=== PATIENT | female | born 1970 | race Caucasian/White ===

== ENCOUNTER 2024-11-03 09:01 | Emergency (ER) | payer OTHER ==
[~2024-11-03] VITALS: Ht 167.6 cm; Wt 79.4 kg
--- NOTE | 2024-11-03 09:30 | ERN ---
General Chief Complaint: Dizzy/Light Headed Stated Complaint: DIZZINESS X 3 DAYS Time Seen by MD: 09:03 History of Present Illness Initial Comments 54-year-old female, history of hypertension, presents for hypertension, dizziness, shoulder discomfort that has some sinus pressure. Patient reports that about a week ago she noticed some pressure on the left side of her shoulder. No chest pain. It was unprovoked, atraumatic. It resolved. Over this past weekend she noticed episodes of dizziness/lightheadedness. She went to [facility] and was told she had hypertension. Her vital signs were stable, but she continues with symptoms now. The [facility] recommended she comes here for further treatment and evaluation. She does report some sinus pressure, no fred headache. No vision changes or focal neurologic deficits. No dyspnea or swelling. She does report some pulling from her left chest into her left shoulder and some tingling. She was taking losartan for years now. She reports that her last nuclear stress test was about five years ago and it was unremarkable. On arrival here her blood pressure is 211 systolic. Allergies: Uncoded Allergies: ANASTHESIA MEDS (Allergy, Severe, UNKNOWN, 11/03/24) Home Meds Active Scripts Clonidine HCl (Clonidine HCl) 0.1 Mg Tablet, 1 TAB PO QID for blood pressure > 140/90 for 10 Days, #30 TAB 0 Refills Prov:SUSU SIMENTAL DO 11/03/24 Losartan Potassium (Losartan Potassium) 100 Mg Tablet, 1 TAB PO DAILY for 30 Days, #30 TAB 0 Refills Prov:SUSU SIMENTAL DO 11/03/24 Past Medical History Past Medical History: Depression, Fibromyalgia, Hypertension Medical History Other: BACK STENOSIS Past Surgical History: Hysterectomy ROS Dictation CONSTITUTIONAL: No chills, no fever, no weakness, no diaphoresis, no malaise. HEAD/FACE: No signs of trauma. EENT: No eye pain, no blurred vision, no tearing, no double vision, no ear pain, no ear discharge, no nose pain, no nasal congestion, no throat pain, no throat swelling, no mouth pain. RESPIRATORY: No cough, no orthopnea, no SOB, no stridor, no wheezing. CARDIOVASCULAR: Left shoulder/chest pain GASTROINTESTINAL/ABDOMINAL: No abdominal pain, no constipation, no diarrhea, no nausea, no vomiting. GENITOURINARY: No abnormal discharge, no dysuria, no frequent urination, no h ematuria. No complaints of pain in the genitals. MUSCULOSKELETAL: No back pain, no gout, no joint pain, no joint swelling, no muscle pain, no muscle stiffness, no neck pain. INTEGUMENTARY: No change in color, no change in hair/nails, no dryness, no les ion, no lumps, no rash. NEUROLOGICAL/PSYCH: Headache HEMATOLOGIC/LYMPHATIC: Not anemic, no history of blood clots, no apparent bleeding, no bruising, glands not swollen. All Systems Negative, Except as Noted. Physical Exam Physical Exam Dictation VITAL SIGNS: Reviewed. GENERAL APPEARANCE: Alert, oriented x3, no acute distress. HEAD AND FACE: Non-traumatic. EYES: PERRL, pink conjunctivas, eyelid no trauma, anterior chamber clear. EARS: Pinnas intact and no signs of trauma or erythema. Ear canals clear and no discharge. TMs no erythema. NOSE: No discharge, no bleeding. OROPHARYNX: Mouth normal, teeth no caries, tongue pink. Pharynx clear, no erythema. Tonsils no exudates, no abscesses noted. Mucous membrane moist. NECK: Supple, non-tender, no thyromegaly, no masses, no JVD, no bruits. BREAST: Deferred. CHEST: No tenderness, no crepitus, no paradoxical movement, no retractions. LUNGS: Clear, well-ventilated, symmetric, no rales, no wheezing, no rhonchi, no stridor, good breath sounds bilaterally. HEART: Regular rate, regular rhythm, no murmur, no gallops. VASCULAR: No peripheral edema. ABDOMEN: Soft, positive bowel sounds, nondistended, no guarding, nontender, no rebound, no masses no hepatomegaly, no splenomegaly, no Jimenez's sign, no hernias. RECTAL: Deferred. GENITAL: Deferred. NEUROLOGICAL: Normal speech, gross motor function intact, gross sensory function intact. MUSCULOSKELETAL: Neck nontender, full range of motion, back nontender, full range of motion. EXTREMITIES: Nontender, full range of motion. SKIN: Color pink, dry, no turgor, no rash, no lacerations, no abrasions, no contusions. LYMPHATICS: Deferred. Results Laboratory and Microbiology Lab and Micro Result Laboratory Tests Test 11/03/24 09:25 11/03/24 10:16 11/03/24 10:47 White Blood Count 4.9 K/uL (4.8-10.8) Red Blood Count 4.80 MIL/uL (4.00-5.50) Hemoglobin 15.3 g/dL (12.0-16.0) Hematocrit 43.3 % (36-48) Mean Corpuscular Volume 90.2 fL (79-99) Mean Corpuscular Hemoglobin 31.9 pg (27.0-33.0) Mean Corpuscular Hemoglobin Concent 35.3 g/dL (32.0-36.0) Red Cell Distribution Width 11.0 % (11.0-15.5) Platelet Count 196 K/uL (130-400) Mean Platelet Volume 10.5 fL (7.5-10.5) Immature Granulocyte % (Auto) 0.6 % (0-1) Neutrophils (%) (Auto) 56.2 % (40.0-77.0) Lymphocytes (%) (Auto) 31.7 % (21.0-51.0) Monocytes (%) (Auto) 8.0 % (3.0-13.0) Eosinophils (%) (Auto) 2.9 % (0.0-8.0) Basophils (%) (Auto) 0.6 % (0.0-5.0) Neutrophils # (Auto) 2.8 K/uL (1.8-7.7) Lymphocytes # (Auto) 1.6 K/uL (1.0-4.8) Monocytes # (Auto) 0.4 K/uL (0.1-1.0) Eosinophils # (Auto) 0.14 K/uL (0.00-0.70) Basophils # (Auto) 0.03 K/uL (0.00-0.20) Absolute Immature Granulocyte (auto 0.03 K/uL (0-1) Nucleated Red Blood Cells 0.0 % (0.0-0.19) Prothrombin Time 10.4 SEC (9.6-11.6) Prothromb Time International Ratio 0.98 (0.85-1.15) Sodium Level 140 mmol/L (136-145) Potassium Level 4.0 mmol/L (3.5-5.1) Chloride Level 103 mmol/L (101-111) Carbon Dioxide Level 29 mmol/L (21-32) Blood Urea Nitrogen 15 mg/dL (7-18) Creatinine 0.8 mg/dL (0.5-1.0) Glomerular Filtration Rate Calc 87 mL/min (>90) Random Glucose 175 mg/dL (70-105) H Total Calcium 9.2 mg/dL (8.5-10.1) Troponin I High Sensitivity < 4 ng/L (4-50) L < 4 ng/L (4-50) L B-Type Natriuretic Peptide 9 pg/mL (0-100) Urine Color LIGHT-YELLOW (YELLOW) Urine Appearance CLEAR (CLEAR) Urine pH 6.5 (5.0-8.0) Urine Specific [place] 1.005 (1.001-1.031) Urine Protein NEGATIVE mg/dL (NEGATIVE) Urine Glucose (UA) NEGATIVE mg/dL (NEGATIVE) Urine Ketones NEGATIVE mg/dL (NEGATIVE) Urine Occult Blood NEGATIVE (NEGATIVE) Urine Nitrate NEGATIVE (NEGATIVE) Urine Bilirubin NEGATIVE mg/dL (NEGATIVE) Urine Urobilinogen 0.2 mg/dL (0.2-1.0) Urine Leukocyte Esterase NEGATIVE B[place]/uL MDM CC: Hypertension, dizziness, left shoulder pain on and off for a week Historian: Patient Comorbidities: Hypertension, depression, fibromyalgia, hysterectomy Limitations by social determinants of health: None Differential diagnosis: ACS, stroke, hypertensive emergency, hypertensive urgency, dehydration, vertigo, electrolyte abnormality, other Initial vital signs: Hypertensive to 216/114 otherwise stable. EKG (independently interpreted by me ): Sinus rhythm, rate of 76, normal axis, good R-wave progression, intervals are stable no STEMI. Clinical exam is unremarkable. NIHSS of 0. No signs of stroke. Cardiac exam is unremarkable. No extra heart tones, pulmonary edema, or pedal edema. Labs (independently ordered and interpreted by me): CBC is normal. Coags normal. Electrolytes normal. Troponin x2 normal. BNP normal. Urinalysis normal. CT head without contrast ( independently interpreted by me): No acute bleeding or abnormalities. CXR ( independently interpreted by me ): No cardiomegaly pleural effusions or focal infiltrates. Based on the clinical presentation patient may be having hypertensive urgency. There was no signs of end-organ damage. No signs of stroke. No signs of ACS w ith a normal troponin x2 EKG. Renal function appears intact. Patient received hydralazine in improved. She was asymptomatic. Treatment in ED: Hydralazine 20 mg IV Repeat vital signs: 136/88, otherwise stable Re-evaluation: Patient asymptomatic. No dizziness or vertigo. No chest pain. Plan: Offered the patient admission for an ACS/cardiac workup. You can also manage her blood pressure since it appears that this may be causing the symptoms. Patient reports that she prefers not to stay in the hospital this time. [facility] I will recommend that she increases her losartan dose and gave her a prescription for clonidine to use as needed. Patient agrees with this plan. She will return to the emergency department if she was any concerning symptoms. ED Course Orders Procedure Category Date Status Time Cbc With Differential LAB 11/03/24 Complete 09:11 Prothrombin Time With LAB 11/03/24 Complete INR 09:11 B-Type Natriuretic LAB 11/03/24 Complete Peptide 09:11 Chest 1vw RAD 11/03/24 Resulted 09:11 12 Lead Ekg Tracing- EKG 11/03/24 Resulted Technical 09:11 Troponin I High LAB 11/03/24 Complete Sensitivity 09:11 Basic Metabolic Panel LAB 11/03/24 Complete 09:11 Ct Head/Brain W/O CT 11/03/24 Resulted Contrast 09:11 Hydralazine 20mg Inj PHA 11/03/24 Complete (Apresoline 20mg In 09:30 Urinalysis Profile LAB 11/03/24 Complete 10:18 Troponin I High LAB 11/03/24 Complete Sensitivity 10:24 Current Medications Medications (Trade) Dose Ordered Sig/Denisha Route PRN Reason Start Time Stop Time Status Last Admin Dose Admin Hydralazine HCl (APRESOLine 20MG INJ) 20 mg ONCE ONCE IV 11/03/24 09:30 11/03/24 09:31 DC 11/03/24 09:50 Vital Signs Date Time Temp Pulse Resp B/P (MAP) Pulse Ox O2 Delivery O2 Flow Rate FiO2 11/03/24 12:24 98.2 80 12 136/88 100 Room Air* 0 11/03/24 11:32 98.2 80 11 131/80 100 Room Air* 0 11/03/24 10:15 97.2 86 16 133/84 100 Room Air* 0 21 11/03/24 09:10 97.2 92 16 206/114 100 Room Air* 0 21 11/03/24 09:03 97.9 79 16 206/114 100 Room Air 0 DX & DISP Disposition: Discharge Departure Impression: Primary Impression: Hypertensive urgency Condition: Stable Scripts Clonidine HCl (Clonidine HCl) 0.1 Mg Tablet 1 TAB PO QID for blood pressure > 140/90 for 10 Days, #30 TAB 0 Refills Prov: SUSU SIMENTAL DO 11/03/24 Losartan Potassium (Losartan Potassium) 100 Mg Tablet 1 TAB PO DAILY for 30 Days, #30 TAB 0 Refills Prov: SUSU SIMENTAL DO 11/03/24 Additional Instructions: Your symptoms are consistent with hypertensive urgency, or an acute elevation of your blood pressure. On arrival to the emergency department, your blood pressure was 206/114. It improved to 131/80 with treatment. Your other vital signs has been stable. Your EKG is normal. Your chest x-ray is normal. The CT scan of your brain without contrast is normal. Your lab work ( CBC, BMP, PT /INR, BNP, troponin x2, urinalysis ) is normal. You received IV hydralazine here in the ER. As we discussed, I recommend that you increase your dose of losartan from 50 mg daily to 100 mg daily. I have prescribed clonidine. This can be used as needed for elevated blood pressure. If you are symptomatic with a blood pressure over 160/90, take a clonidine tab to ensure that your blood pressure improves.Only use this medication as needed. As we discussed, likely need further studies regarding your heart and you need further monitoring of your blood pressure. Please return to the [facility] for further treatment and evaluation. Return to the emergency department if you have any concerning symptoms. SUSU SIMENTAL DO November 03, 2024 09:30
[2024-11-03 09:35] LABS: BASOPHILS # (AUTO) 0.03 K/uL (0.00-0.20); BASOPHILS % (AUTO) 0.6 % (0.0-5.0); EOSINOPHILS # (AUTO) 0.14 K/uL (0.00-0.70); EOSINOPHILS % (AUTO) 2.9 % (0.0-8.0); HEMATOCRIT 43.3 % (36-48); IMMATURE GRANULOCYTE ABSOLUTE 0.03 K/uL (0-1); LYMPHOCYTES # (AUTO) 1.6 K/uL (1.0-4.8); LYMPHOCYTES % (AUTO) 31.7 % (21.0-51.0); MEAN CORPUSCULAR HEMOGLOBIN 31.9 pg (27.0-33.0); MEAN CORPUSCULAR HGB CONC 35.3 g/dL (32.0-36.0); MEAN CORPUSCULAR VOLUME 90.2 fL (79-99); MONOCYTES # (AUTO) 0.4 K/uL (0.1-1.0); NEUTROPHILS # (AUTO) 2.8 K/uL (1.8-7.7); NEUTROPHILS % (AUTO) 56.2 % (40.0-77.0); PLATELET COUNT (AUTO) 196 K/uL (130-400); WHITE BLOOD COUNT (AUTO) 4.9 K/uL (4.8-10.8)
[2024-11-03 09:45] LABS: INR 0.98 (0.85-1.15); PROTHROMBIN TIME 10.4 SEC (9.6-11.6)
[2024-11-03] MEDS: hydrALAZine 20MG/ML VIAL IV ONE (09:50)
--- NOTE | 2024-11-03 09:52 | HMCIMG ---
Exam Type: CHEST 1VW Clinical Information: chest pain Comparison: None Findings: The lungs are clear of infiltrates. The heart is normal in size. The bony and soft tissue structures of the chest are unremarkable. Impression: Clear lungs.
[2024-11-03 10:13] LABS: CREATININE 0.8 mg/dL (0.5-1.0)
--- NOTE | 2024-11-03 10:20 | NUR ---
NO HOME MEDS AT BEDSIDE
--- NOTE | 2024-11-03 10:34 | HMCIMG ---
Exam Type: CT HEAD/BRAIN W/O CONTRAST Clinical Information: dizziness, HTN Comparison: None CT Dose Index (CTDI): 57.33 mGy Dose Length Product (DLP): 956.79 total mGy-cm Findings: The examination is unremarkable. Arriola-white matter junction is preserved. No intra or extra axial lesions or fluid collections are seen. Specifically, arriola and white matter are normal in signal characteristics with normal caliber of ventricles and periventricular cisterns with no evidence of intra or or extra-axial hemorrhage, lacunar infarct, or major territorial infarct, mass, or other abnormality. There are no infarcts. There are no hemorrhages. Periventricular white matter locations are preserved. The orbital contents and structures of the posterior fossa are intact. Impression: Normal CT of the head. This study was performed using dose reduction techniques to include automated exposure control and/or adjustment of the mA and/or kV according to patient size.
[2024-11-03 10:40] LABS: B-TYPE NATRIURETIC PEPTIDE 9 pg/mL (0-100)
[2024-11-03 10:48] LABS: APPEARANCE,URINE CLEAR (CLEAR); BILIRUBIN,URINE NEGATIVE (NEGATIVE); COLOR,URINE LIGHT-YELLOW (YELLOW); GLUCOSE, URINE (UA) NEGATIVE (NEGATIVE); KETONES,URINE NEGATIVE (NEGATIVE); LEUKOCYTE ESTERASE ,URINE NEGATIVE Leu/uL (NEGATIVE); NITRATE,URINE NEGATIVE (NEGATIVE); OCCULT BLOOD,URINE NEGATIVE (NEGATIVE); PH,URINE 6.5 (5.0-8.0); PROTEIN,URINE NEGATIVE (NEGATIVE); UROBILINOGEN,URINE 0.2 mg/dL (0.2-1.0)
[2024-11-03 10:53] LABS: ADD UA MICROSCOPIC NO
--- NOTE | 2024-11-03 12:04 | EKG ---
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
[2024-11-03] MEDS ORDERED: CLON0.1T PO (12:14)
[2024-11-03] MEDS ORDERED: LOSA100T59 PO (12:14)
[2024-11-03 12:24] VITALS: BP 136/88; PULSE 80; RESP 12; TEMP 98.2; O2SAT 100
--- NOTE | 2024-11-03 12:39 | NUR ---
DC PATIENT WAS DC'D BY DR. SIMENTAL, I DC'D PATIENTS IV WITH CATH STILL IN PLACE AND APPLIED 2X2 GAUZE WITH COBAN I EXPLAINED TO PATIENT TO FOLLOW UP WITH PCP AND TO TAKE NEW PRESCRIPTIONS DIRECTED PATIENT AMBULATED OUT OF ED, NO COMPLICATIONS
== END 2024-11-03 12:37 | disposition home or self-care (01) ==
LOC: EDH 09:01
DX: I16.0 Hypertensive urgency (principal); F32.A Depression, unspecified; I10 Essential (primary) hypertension; M79.7 Fibromyalgia; Z79.899 Other long term (current) drug therapy; Z90.710 Acquired absence of both cervix and uterus
CPT/HCPCS: 99285; 96374; 70450; 71045; 84484 ×2; 80048; 83880; 85025; 85610; 81003; 36415; 93005; J0360